=== PATIENT | female | born 1970 | race Two or more races ===

== ENCOUNTER 2018-04-11 16:32 | Inpatient (IN) | payer OTHER ==
[~2018-04-11] VITALS: Ht 154.9 cm; Wt 77.6 kg
== END 2018-04-18 13:44 | DRG 743 ==
LOC: OB/GYN 04-16 06:26 → O/R 04-16 06:26 → SURH 04-16 08:30 → OB/GYN 04-16 19:01
PROVIDERS: ADMIT Obstetrics & Gynecology
PROC: 0UT00ZZ Resection of Right Ovary, Open Approach (ICD-10-PCS; 2018-04-16)
PROC: 0UT50ZZ Resection of Right Fallopian Tube, Open Approach (ICD-10-PCS; 2018-04-16)
PROC: 0UT64ZZ Resection of Left Fallopian Tube, Percutaneous Endoscopic Approach (ICD-10-PCS; 2018-04-16)
PROC: 0UJD4ZZ Inspection of Uterus and Cervix, Percutaneous Endoscopic Approach (ICD-10-PCS; 2018-04-16)
PROC: 0TJB8ZZ Inspection of Bladder, Via Natural or Artificial Opening Endoscopic (ICD-10-PCS; 2018-04-16)
PROC: 0UT90ZZ Resection of Uterus, Open Approach (ICD-10-PCS; principal; 2018-04-16 08:30)
DX: D25.1 Intramural leiomyoma of uterus (principal); N93.8 Other specified abnormal uterine and vaginal bleeding